=== PATIENT | male | born 1955 | race Caucasian/White ===

== ENCOUNTER 2024-02-26 08:50 | Emergency (ER) | payer OTHER ==
[2024-02-26 08:58] VITALS: BP 118/68; PULSE 73; RESP 18; TEMP 98.7; BMI 26.6
[2024-02-26] MEDS ORDERED: ALBUTEROL SO4 2.5/IPRATROPIUM 0.5 INH SOL 3 ML VIAL.NEB. NEB ONE (10:15)
[2024-02-26] MEDS: ALBUTEROL SO4 2.5/IPRATROPIUM 0.5 INH SOL 3 ML VIAL.NEB. NEB ONE (10:17)
== END 2024-02-26 10:59 | disposition home or self-care (01) ==
LOC: JERFT 08:50
PROC: 3E0F7GC Introduction of Other Therapeutic Substance into Respiratory Tract, Via Natural or Artificial Opening (ICD-10-PCS; principal; 2024-02-26)
DX: R05.2 Subacute cough (principal); R50.9 Fever, unspecified; J40 Bronchitis, not specified as acute or chronic; R09.82 Postnasal drip; R09.81 Nasal congestion; Z20.822 Contact with and (suspected) exposure to COVID-19
CPT/HCPCS: 0241U-QW; 71046-TC-FY; 99284-25

== ENCOUNTER 2024-07-17 12:34 | Emergency (ER) | payer OTHER ==
[2024-07-17 13:05] VITALS: BP 113/72; PULSE 60; RESP 18; TEMP 9.8; BMI 27.3
[2024-07-17] MEDS ORDERED: ACETAMINOPHEN 500 MG TABLET (FP) ONE (13:51)
[2024-07-17] MEDS: ACETAMINOPHEN 500 MG TABLET (FP) PO ONE (13:53)
[2024-07-17] MEDS ORDERED: LIDOCAINE 5% TOPICAL PATCH TP ONE (14:24)
[2024-07-17] MEDS ORDERED: LIDOCAINE 4% PATCH TP ONE (14:26)
[2024-07-17] MEDS ORDERED: LIDOCAINE PATCH REMOVAL MC ONE (22:00)
== END 2024-07-17 14:31 | disposition home or self-care (01) ==
LOC: JER 12:34 → JERFT 12:34
DX: S49.91XA Unspecified injury of right shoulder and upper arm, initial encounter (principal); V18.0XXA Pedal cycle driver injured in noncollision transport accident in nontraffic accident, initial encounter
CPT/HCPCS: 73030-TC-RT-FY; 99283-25